=== PATIENT | female | born 1995 | race African-American/Black ===

== ENCOUNTER 2018-03-17 18:20 | Emergency (ER) | payer BC ==
[2018-03-17] MEDS ORDERED: predniSONE TAB* 20 MG PO ONE (20:52)
--- NOTE | 2018-03-17 20:55 | ED ---
Skin Complaint - HPI Summary HPI Summary: 22 yr old female with rash to face that is itching, and papular in nature. Unknown exposures, and also she has not felt ill. No new makeup. It is itchy. - History of Current Complaint Chief Complaint: UCSkin Time Seen by Provider: 03/17/18 20:41 Stated Complaint: SKIN CONCERN Pain Intensity: 0 - Allergy/Home Medications Allergies/Adverse Reactions: Allergies Allergy/AdvReac Type Severity Reaction Status Date / Time No Known Allergies Allergy Verified 03/17/18 20:30 Home Medications: Home Medications Hydrocortisone 0.5% OINT* 1 applic TOPICAL DAILY 03/17/18 [History Confirmed 11/27] LevoCETirizine TAB (NF) [Xyzal TAB (NF)] 5 mg PO DAILY 03/17/18 [History Confirmed 03/17/18] Norgestimate-Ethinyl Estradiol [Ortho-Cyclen 28 Tablet] 1 each PO DAILY [History Confirmed 03/17/18] Sertraline HCl [Zoloft] 50 mg PO DAILY 03/17/18 [History Confirmed 03/17/18] diphenhydrAMINE HCl [Benadryl Allergy 25 MG CAP] 25 mg PO Q12H 03/17/18 [ History Confirmed 03/17/18] PMH/Surg Hx/FS Hx/Imm Hx - Surgical History Surgery Procedure, Year, and Place: WISDOM TEETH Infectious Disease History: No Infectious Disease History: Denies: Traveled Outside the [place] in Last 30 Days - Family History Known Family History: Positive: None - Social History Occupation: Student Alcohol Use: None Substance Use Type: Reports: None Smoking Status (MU): Never Smoked Tobacco Review of Systems Positive: Rash - face All Other Systems Reviewed And Are Negative: Yes Physical Exam Triage Information Reviewed: Yes Vital Signs On Initial Exam: Initial Vitals Temp Pulse Resp BP Pulse Ox 98 F 74 16 135/90 99 03/17/18 20:25 03/17/18 20:25 03/17/18 20:25 03/17/18 20:25 03/17/18 20:25 Vital Signs Reviewed: Yes Appearance: Positive: Well-Appearing, No Pain Distress Skin: Positive: Other - rash to face, papular. Not pustular or vesicular, no wheeping no cellulits. Eyes: Positive: Normal, EOMI Neck: Positive: Nontender Respiratory/Lung Sounds: Positive: Clear to Auscultation, Breath Sounds Present Cardiovascular: Positive: RRR. Negative: Murmur Abdomen Description: Positive: Nontender Musculoskeletal: Positive: Strength/ROM Intact Neurological: Positive: Sensory/Motor Intact, Alert, Oriented to Person Place, Time, CN Intact II-III Psychiatric: Positive: Normal Diagnostics - Vital Signs Vital Signs Temp Pulse Resp BP Pulse Ox 03/17/18 20:25 98 F 74 16 135/90 99 - Laboratory Lab Statement: Any lab studies that have been ordered have been reviewed, and results considered in the medical decision making process. Course/Dx - Course Course Of Treatment: 22 yr old with rash to face. Rx medrol dose monse - Diagnoses Provider Diagnoses: Facial dermatitis Discharge - Sign-Out/Discharge Documenting (check all that apply): Patient Departure All imaging exams completed and their final reports reviewed: No Studies - Discharge Plan Condition: Good Disposition: HOME Prescriptions: methylPREDNISolone TAB* [Medrol TAB*] 4 mg PO .SEE MONSE #1 monse Patient Education Materials: Eczema (ED), Hypertension (ED) Referrals: No Primary Care Phys,NOPCP [Primary Care Provider] - [facility] [place] [facility] REFERRAL [Outside] - 2 Days - Billing Disposition and Condition Condition: GOOD Disposition: Home
== END 2018-03-17 21:06 | disposition home or self-care (01) ==
LOC: UCCORT 18:20
DX: L30.9 Dermatitis, unspecified (principal)
CPT/HCPCS: 99202; G0463; J7512